=== PATIENT | male | born 1995 | race Caucasian/White ===

== ENCOUNTER 2021-09-28 22:42 | Emergency (ER) | payer OTHER ==
[~2021-09-28] VITALS: Ht 175.3 cm; Wt 83.2 kg
[~2021-09-28 22:42] MED LIST: SERT-158 PO
[2021-09-28 22:46] VITALS: BP 149/86
[2021-09-28] MEDS ORDERED: KETOROLAC TROMETHAMINE 30 MG/ML VIAL IM ONE (23:45)
== END 2021-09-29 00:39 | disposition home or self-care (01) ==
LOC: EMS 22:47
DX: S62.317A Displaced fracture of base of fifth metacarpal bone, left hand, initial encounter for closed fracture (principal); F12.90 Cannabis use, unspecified, uncomplicated; F17.210 Nicotine dependence, cigarettes, uncomplicated; W50.0XXA Accidental hit or strike by another person, initial encounter; Y93.89 Activity, other specified; Y92.89 Other specified places as the place of occurrence of the external cause; Y99.8 Other external cause status
CPT/HCPCS: 99283; 73130; 96372; J1885